=== PATIENT | male | born 1980 ===

== ENCOUNTER 2019-12-25 15:42 | Emergency (ER) | payer SELFPAY ==
--- NOTE | 2019-12-25 16:14 | RAD ---
AP CHEST: 12/25/19 HISTORY: Cough. Lung frazier are clear. Heart and mediastinum unremarkable. No evidence of infiltrate. IMPRESSION: No acute findings. POS: [facility]
== END 2019-12-25 16:28 ==
LOC: ERS 15:42
DX: R05 Cough (principal); I10 Essential (primary) hypertension; J39.9 Disease of upper respiratory tract, unspecified; Z79.82 Long term (current) use of aspirin; Z79.899 Other long term (current) drug therapy
CPT/HCPCS: 71045; 93005